=== PATIENT | female | born 1965 | race African-American/Black ===

== ENCOUNTER 2018-03-23 21:59 | Inpatient (IN) | payer SELFPAY ==
[2018-03-23] MEDS: IV NORMAL SALINE 1000ML BAG 1,000 ML IV (22:45)
[2018-03-23] MEDS: ASPIRIN CHEWABLE 81 MG TABLET. PO (22:45)
[2018-03-23 23:13] LABS: ADD MAN DIFF? NO
[2018-03-23 23:15] LABS: BASO # 0.1 x10^3/uL (0.0-0.2); BASO % 1 % (0-3); EOS # 0.4 x10^3/uL (0.0-0.7); EOS % 4 % (0-3); HEMATOCRIT 43.4 % (36.0-47.0); HEMOGLOBIN 14.5 g/dL (12.0-15.5); LYMPH # 4.5 x10^3/uL (1.0-4.8); LYMPH % 38 % (24-48); MEAN CORPUSCULAR HEMOGLOBIN 29 pg (25-35); MEAN CORPUSCULAR HGB CONC 34 g/dL (31-37); MEAN CORPUSCULAR VOLUME 86 fL (79-100); MONO # 0.6 x10^3/uL (0.0-1.1); MONO % 5 % (0-9); NEUT # 6.3 x10^3uL (1.8-7.7); NEUT % 53 % (31-73); PLATELET COUNT 310 x10^3/uL (140-400); RED BLOOD COUNT 5.07 x10^6/uL (3.50-5.40); RED CELL DISTRIBUTION WIDTH 15.1 % (11.5-14.5); WHITE BLOOD COUNT 11.9 x10^3/uL (4.0-11.0)
[2018-03-23 23:23] LABS: ANION GAP 8 (6-14); BLOOD UREA NITROGEN 14 mg/dL (7-20); CALCIUM 8.8 mg/dL (8.5-10.1); CARBON DIOXIDE 28 mmol/L (21-32); CHLORIDE 103 mmol/L (98-107); CREATININE 0.7 mg/dL (0.6-1.0); GFR 106.3; GLUCOSE 99 mg/dL (70-99); POTASSIUM 3.2 mmol/L (3.5-5.1); SODIUM 139 mmol/L (136-145)
[2018-03-23 23:26] LABS: D-DIMER < 0.27 ug/mlFEU (0.00-0.50)
[2018-03-23 23:33] LABS: TROPONINI < 0.017 ng/mL (0.000-0.055)
[2018-03-24] MEDS ORDERED: ONDANSETRON PF 4 MG/2 ML VIAL. IV (00:30)
[2018-03-24] MEDS ORDERED: ACETAMINOPHEN 325 MG TABLET. PO (00:30)
[2018-03-24] MEDS ORDERED: MORPHINE SULFATE 4 MG/ML DISP.SYRIN. IV (00:30)
[2018-03-24 04:22] LABS: TROPONINI < 0.017 ng/mL (0.000-0.055)
[2018-03-24 07:27] LABS: TROPONINI < 0.017 ng/mL (0.000-0.055)
[2018-03-24] MEDS ORDERED: LORazepam 1 MG TABLET PO (09:30)
[2018-03-24] MEDS ORDERED: ALBUTEROL SULFATE 2.5 MG/3 ML NEBU. NEB (09:45)
[2018-03-24] MEDS: CYANOCOBALAMIN (VITAMIN B-12) 1,000 MCG TABLET. PO (09:46)
[2018-03-24] MEDS: PANTOPRAZOLE 40 MG TABLET.DR. PO (09:47)
[2018-03-24] MEDS ORDERED: metFORMIN 500 MG TABLET PO (17:00)
[2018-03-24] MEDS ORDERED: ATORVASTATIN CALCIUM 40 MG TABLET. PO (21:00)
== END 2018-03-24 12:44 | disposition home or self-care (01) | DRG 313 ==
LOC: 5 NORTH 03-24 00:26 → ER 21:59
DX: R07.89 Other chest pain (principal); E11.9 Type 2 diabetes mellitus without complications; E78.5 Hyperlipidemia, unspecified; E87.6 Hypokalemia; F17.210 Nicotine dependence, cigarettes, uncomplicated; F32.9 Major depressive disorder, single episode, unspecified; F41.9 Anxiety disorder, unspecified; I10 Essential (primary) hypertension; J45.909 Unspecified asthma, uncomplicated; M19.90 Unspecified osteoarthritis, unspecified site; K21.9 Gastro-esophageal reflux disease without esophagitis; Z82.49 Family history of ischemic heart disease and other diseases of the circulatory system; Z90.710 Acquired absence of both cervix and uterus; Z88.2 Allergy status to sulfonamides; Z88.8 Allergy status to other drugs, medicaments and biological substances; Z90.49 Acquired absence of other specified parts of digestive tract
CPT/HCPCS: 36415; 71045; 80048; 84484; 85025; 85379; 93005; 94760; 96360; 99285; 99285-25; J7030

== ENCOUNTER 2019-01-15 04:49 | Emergency (ER) | payer SELFPAY ==
[~2019-01-15] VITALS: Ht 172.7 cm; Wt 77.1 kg
[~2019-01-15 04:49] MED LIST: ALBU2.5V8 INH; ASPI81TA50 PO; CRESTOR10 MG PO; CRESTOR40 MG PO; CYAN100031 PO; EZET10TA18 PO; HYDR-2761 PO; LORA-434 PO; LORA1TAB PO; METF500T16 PO; OMEP20CA10 PO; OMEP40CA5 PO; PHEN37.53 PO; SERT50TA PO
[2019-01-15] MEDS ORDERED: ACETAMINOPHEN 650 MG/20.3 ML SOLUTION. PEG ONE (06:00)
[2019-01-15 06:16] LABS: INFLUENZA A PATIENT POSITIVE (NEGATIVE); INFLUENZA B PATIENT NEGATIVE (NEGATIVE)
--- NOTE | 2019-01-15 06:28 | PHYS DOC ---
Past Medical History Past Medical History: High Cholesterol, Other Additional Past Medical Histor: bowel obstruction, "prediabetic" Past Surgical History: Cholecystectomy, Hysterectomy, Other Additional Past Surgical Histo: bowel obstruction x2, Alcohol Use: Occasionally Drug Use: None Adult General Chief Complaint Chief Complaint: FLU SYMPTOM HPI HPI Patient is a 53 year old female presents with a chief complaint of cough congestion runny stuffy nose fever muscle aches 4 days Review of Systems Review of Systems Constitutional: Denies fever or chills [] Eyes: Denies change in visual acuity, redness, or eye pain [] HENT: Denies nasal congestion or sore throat [] Respiratory: Denies cough or shortness of breath [] Cardiovascular: No additional information not addressed in HPI [] GI: Denies abdominal pain, nausea, vomiting, bloody stools or diarrhea [] : Denies dysuria or hematuria [] Musculoskeletal: Denies back pain or joint pain [] Integument: Denies rash or skin lesions [] Neurologic: Denies headache, focal weakness or sensory changes [] Endocrine: Denies polyuria or polydipsia [] All other systems were reviewed and found to be within normal limits, except as documented in this note. Current Medications Current Medications Current Medications Medications (Trade) Dose Ordered Sig/Ricky Start Time Stop Time Status Last Admin Dose Admin Acetaminophen (Tylenol) 650 mg 1X ONCE 01/15/19 06:00 01/15/19 06:01 DC 01/15/19 06:15 650 MG Allergies Allergies Allergies Coded Allergies Type Severity Reaction Last Updated Verified Sulfa (Sulfonamide Antibiotics) Allergy Severe ANAPHYLAXIS 11/08/17 Yes codeine Allergy Severe ANAPHYLAXIS 11/08/17 Yes Physical Exam Physical Exam Constitutional: Well developed, well nourished, no acute distress, non-toxic appearance. [] HENT: Normocephalic, atraumatic, bilateral external ears normal, oropharynx moist, no oral exudates, nose normal. [] Eyes: PERRLA, EOMI, conjunctiva normal, no discharge. [] Neck: Normal range of motion, no tenderness, supple, no stridor. [] Cardiovascular:Heart rate regular rhythm, no murmur [] Lungs & Thorax: Bilateral breath sounds clear to auscultation [] Abdomen: Bowel sounds normal, soft, no tenderness, no masses, no pulsatile masses. [] Skin: Warm, dry, no erythema, no rash. [] Back: No tenderness, no CVA tenderness. [] Extremities: No tenderness, no cyanosis, no clubbing, ROM intact, no edema. [] Neurologic: Alert and oriented X 3, normal motor function, normal sensory function, no focal deficits noted. [] Psychologic: Affect normal, judgement normal, mood normal. [] Current Patient Data Vital Signs Vital Signs Date Time Temp Pulse Resp B/P (MAP) Pulse Ox O2 Delivery O2 Flow Rate FiO2 01/15/19 04:50 102.4 128 20 107/76 (86) 91 Room Air 102.4 Lab Values Laboratory Tests Test 01/15/19 05:19 Influenza Type A Antigen Positive (NEGATIVE) Influenza Type B Antigen Negative (NEGATIVE) EKG EKG [] Radiology/Procedures Radiology/Procedures [] Course & Med Decision Making Course & Med Decision Making Pertinent Labs and Imaging studies reviewed. (See chart for details) [] Dragon Disclaimer Dragon Disclaimer This electronic medical record was generated, in whole or in part, using a voice recognition dictation system. Departure Departure Impression: Primary Impression: Influenza Additional Impression: Fever Disposition: 01 HOME, SELF-CARE Condition: STABLE Patient Instructions: Influenza A (H1N1), Fever, Adult Problem Qualifiers SHANNAN FERRERA DO Jan 15, 2019 06:28
[2019-01-15 06:30] VITALS: BP 102/59
--- NOTE | 2019-01-15 06:41 | RAD ---
PROCEDURE: CHEST AP ONLY CLINICAL INDICATION: FEVER COUGH COMPARISON: None FINDINGS: Heart is normal in size. Mild prominence of bilateral central bronchi. No focal consolidation. No pneumothorax or pleural effusion. Visualized bony thorax is within normal limits. IMPRESSION: Mild bronchitis. Electronically signed by: Anibal Glez DO (01/15/2019 6:38 AM) [facility]
== END 2019-01-15 06:50 | disposition home or self-care (01) ==
LOC: ER 04:49
DX: J11.1 Influenza due to unidentified influenza virus with other respiratory manifestations (principal); M79.18 Myalgia, other site; E78.00 Pure hypercholesterolemia, unspecified; Z90.49 Acquired absence of other specified parts of digestive tract; Z90.710 Acquired absence of both cervix and uterus; Z88.2 Allergy status to sulfonamides; Z88.5 Allergy status to narcotic agent
CPT/HCPCS: 71045; 87804; 99284-25

== ENCOUNTER 2021-02-15 03:32 | Emergency (ER) | payer OTHER ==
[~2021-02-15] VITALS: Ht 170.2 cm; Wt 74.0 kg
[~2021-02-15 03:32] MED LIST changes: -EZET10TA18 PO; +EZET10TA20 PO; -OMEP20CA10 PO; +OMEP20CA16 PO; +OMEP40CA45 PO; -OMEP40CA5 PO
[2021-02-15 03:35] VITALS: BP 138/90
[2021-02-15] MEDS ORDERED: PRED20TA PO (03:53)
[2021-02-15] MEDS ORDERED: AMOX1TAB61 PO (03:53)
--- NOTE | 2021-02-15 03:53 | PHYS DOC ---
Past Medical History Past Medical History: High Cholesterol, Other Additional Past Medical Histor: bowel obstruction, "prediabetic" Past Surgical History: Cholecystectomy, Hysterectomy, Other Additional Past Surgical Histo: bowel obstruction x2, Smoking Status: Current Every Day Smoker Alcohol Use: Occasionally Drug Use: None General Adult EDM: Chief Complaint: FACE PAIN HPI: HPI: Patient is a 55 year old female who presents to the emergency department the chief complaint of facial pain. She states that about 3 to 4 days ago she experienced facial pressure and bilateral ear pain. Associated symptoms are nausea, cough. She denies fever, vomiting, diarrhea, chest pain, shortness of breath, facial injury. She denies sick contacts at home or at work and is fully Covid vaccinated. Review of Systems: Review of Systems: Constitutional: Denies fever or chills Eyes: Denies redness or eye pain HENT: Reports sinus pressure, denies sore throat. Respiratory: Reports cough, denies shortness of breath. Cardiovascular: Denies chest pain or palpitations GI: Denies abdominal pain, vomiting, diarrhea. Reports nausea : Denies dysuria or hematuria Musculoskeletal: Denies back pain or joint pain Integument: Denies rash or skin lesions Neurologic: Denies headache, focal weakness or sensory changes Complete systems were reviewed and found to be within normal limits, except as documented in this note. Heart Score: C/O Chest Pain: N/A Allergies: Allergies: Allergies Coded Allergies Type Severity Reaction Last Updated Verified Sulfa (Sulfonamide Antibiotics) Allergy Severe ANAPHYLAXIS 11/08/17 Yes codeine Allergy Severe ANAPHYLAXIS 11/08/17 Yes Physical Exam: PE: Constitutional: Well developed, well nourished, no acute distress, non-toxic appearance. [] HENT: Normocephalic, atraumatic, bilateral external ears normal, oropharynx moist, no oral exudates, nose normal. [] Eyes: PERRLA, EOMI, conjunctiva normal, no discharge. [] Neck: Normal range of motion, no tenderness, supple, no stridor. [] Cardiovascular:Heart rate regular rhythm, no murmur [] Lungs & Thorax: Bilateral breath sounds clear to auscultation [] Abdomen: Bowel sounds normal, soft, no tenderness, no masses, no pulsatile masses. [] Skin: Warm, dry, no erythema, no rash. [] Back: No tenderness, no CVA tenderness. [] Extremities: No tenderness, no cyanosis, no clubbing, ROM intact, no edema. [] Neurologic: Alert and oriented X 3, normal motor function, normal sensory function, no focal deficits noted. [] Psychologic: Affect normal, judgement normal, mood normal. [] Current Patient Data: Vital Signs: Vital Signs Date Time Temp Pulse Resp B/P (MAP) Pulse Ox O2 Delivery O2 Flow Rate FiO2 02/15/21 03:35 98.5 93 18 138/90 (106) 99 98.5 EKG: EKG: [] Radiology/Procedures: Radiology/Procedures: [] Course & Med Decision Making: Course & Med Decision Making Pertinent Labs and Imaging studies reviewed. (See chart for details) [] Dragon Disclaimer: [email or web address] Disclaimer: This electronic medical record was generated, in whole or in part, using a voice recognition dictation system. Departure Departure Impression: Primary Impression: Sinusitis Qualified Codes: J01.90 - Acute sinusitis, unspecified Disposition: HOME / SELF CARE / HOMELESS Condition: STABLE Referrals: NO PCP (PCP) GEORGE GUTIERREZ MD Patient Instructions: Sinusitis, [id number] Additional Instructions: Hold antibiotics for 48 hours. If symptoms worsen or for fever > 100.3 F after 48 hours then start antibiotics as prescribed. Scripts Amoxicillin/Potassium Clav (AUGMENTIN 875-125 TABLET) 1 Each Tablet 1 TAB PO BID, #14 TAB Prov: CODY BARRON DO 02/15/21 Prednisone (PREDNISONE) 20 Mg Tablet 2 TAB PO DAILY, #8 TAB Prov: CODY BARRON DO 02/15/21 CODY BARRON DO Feb 15, 2021 03:53
[2021-02-15] MEDS ORDERED: AMOXICILLIN/K CLAV 875/125MG TABLET. ONE (04:05)
[2021-02-15] MEDS: DEXAMETHASONE 4 MG TABLET PO ONE (04:09)
[2021-02-15] MEDS ORDERED: AMOXICILLIN/K CLAV 875/125MG TABLET. PO ONE (04:30)
== END 2021-02-15 04:13 | disposition home or self-care (01) ==
LOC: ER 03:32
DX: J01.90 Acute sinusitis, unspecified (principal); E78.00 Pure hypercholesterolemia, unspecified; H92.01 Otalgia, right ear; H92.02 Otalgia, left ear; F17.200 Nicotine dependence, unspecified, uncomplicated; Z88.2 Allergy status to sulfonamides; Z88.5 Allergy status to narcotic agent
CPT/HCPCS: 99283